=== PATIENT | female | born 1955 | race American Indian/Alaskan Native ===

== ENCOUNTER 2020-06-02 08:08 | Emergency (ER) | payer OTHER ==
[2020-06-02 10:32] LABS: Bacteria,Urine 2+ /HPF (Negative); Bilirubin,Urine NEG (Negative); Blood,Urine SM (Negative); Color,Urine Yellow (Yellow); Mucus,Urine FEW /HPF
--- NOTE | 2020-06-02 10:42 | Emergency Department Report ---
ED General Adult HPI - General Chief complaint: Abdominal Pain Stated complaint: ABDOMINAL PAIN/DIZZY/HEADACHE Time Seen by Provider: 06/02/20 10:22 Source: patient Mode of arrival: Ambulatory Limitations: No Limitations - History of Present Illness Initial comments: This is a 65-year-old -Irish female she is complaining of 1 week of feeling tired and having lower abdominal pain is scale of 7/10. She denies urinary frequency urgency but reports her urine is being hot. She also reports loss of appetite. Her last bowel movement was yesterday and it was normal. She denies any chest pain shortness of breath cough fever chills no nausea no vomiting. She is well-appearing and in no acute distress - Related Data Allergies Allergy/AdvReac Type Severity Reaction Status Date / Time No Known Allergies Allergy Unverified 06/02/20 08:15 ED Review of Systems ROS: Stated complaint: ABDOMINAL PAIN/DIZZY/HEADACHE Other details as noted in HPI Comment: All other systems reviewed and negative (Feeling fatigued) Constitutional: chills. denies: fever, malaise, weakness ENT: denies: ear pain, throat pain, hearing loss, epistaxis Respiratory: cough. denies: shortness of breath, SOB at rest, wheezing Cardiovascular: denies: chest pain, palpitations, dyspnea on exertion Gastrointestinal: abdominal pain (off and on ), other. denies: nausea, vomiting, diarrhea, constipation Genitourinary: denies: urgency, dysuria, frequency, hematuria (Decreased appetite) Skin: denies: rash Psychiatric: denies: anxiety ED Past Medical Hx - Past Medical History Additional medical history: hypothyroidism - Surgical History Past Surgical History?: No - Social History Smoking Status: Never Smoker ED Physical Exam - General Limitations: No Limitations General appearance: alert, in no apparent distress - Head Head exam: Present: atraumatic - Eye Eye exam: Present: normal appearance. Absent: conjunctival injection - ENT ENT exam: Present: normal exam, normal orophraynx, mucous membranes moist, TM's normal bilaterally - Neck Neck exam: Present: normal inspection. Absent: lymphadenopathy - Respiratory Respiratory exam: Present: normal lung sounds bilaterally. Absent: respiratory distress, chest wall tenderness - Cardiovascular Cardiovascular Exam: Present: regular rate, normal heart sounds - GI/Abdominal GI/Abdominal exam: Present: soft, normal bowel sounds. Absent: distended, tenderness, guarding, rebound, rigid - Rectal Rectal exam: Present: deferred - External exam: Present: normal external exam - Extremities Exam Extremities exam: Present: normal inspection - Back Exam Back exam: Present: normal inspection. Absent: CVA tenderness (R), CVA tenderness (L) - Neurological Exam Neurological exam: Present: alert, oriented X3 - Psychiatric Psychiatric exam: Present: flat affect - Skin Skin exam: Present: warm, normal color ED Course Vital Signs 06/02/20 06/02/20 06/02/20 08:14 11:57 14:52 Temperature 98.3 F 98.6 F Pulse Rate 83 75 Respiratory 18 14 18 Rate Blood Pressure 127/82 120/84 O2 Sat by Pulse 100 99 99 Oximetry - Reevaluation(s) Reevaluation #1: 06/02/20 13:59 Pt in no acute distress. she feels like she is having flu-like symptoms she is concerned that she may have Covid she denies any chest pain no shortness of breath states that she has a dry cough . Plan to order chest xray and monitor pulse ox 06/02/20 14:05 ED Medical Decision Making - Lab Data Result diagrams: 06/02/20 10:45 06/02/20 10:45 - Radiology Data Radiology results: report reviewed Chest xray No acute findings - Medical Decision Making Chest x-ray with no acute findings patient able to ambulate with no desaturation. She is well-appearing and in no distress plan to discharge patient home with outpatient follow-up. She can have a Covid testing done in the community and follow-up with her primary care doctor Before walking the patient's O2 was 99% on RA HR was 66, while walking her O2 went down to 97% on RA and her HR went up to 88. - Differential Diagnosis Viral syndrome influenza, Covid infection Critical care attestation.: If time is entered above; I have spent that time in minutes in the direct care of this critically ill patient, excluding procedure time. ED Disposition Clinical Impression: Viral syndrome, Flu-like symptoms Disposition: DC-01 TO HOME OR SELFCARE Is pt being admited?: No Does the pt Need Aspirin: No Condition: Stable Instructions: Abdominal Pain (ED), Viral Respiratory Infection, [id number], Hand Washing, [id number], Viral Respiratory Infection, Influenza, Adult, [id number] Additional Instructions: When you return home please rest. Increase oral hydration drinking at least 6 to 8 glasses a day. Follow-up with your primary care doctor in the next 3 to 5 days. Refer to the community referral for Covid testing. It is okay for you to take Tylenol as needed for body aches. Okay for you used to use Robitussin 1 teaspoon every 4-6 hours as needed for cough. Return to the emergency room if you develop any chest pain or shortness of breath Referrals: ZACARIAS SORIANO MD [Primary Care Provider] - 3-5 Days KRYSTYNA RATLIFF MD [Staff Physician] - 3-5 Days Forms: Work/School Release Form(ED) Time of Disposition: 15:20
[2020-06-02 11:13] LABS: Hematocrit 39.5 % (30.3-42.9); Hemoglobin 13.2 gm/dl (10.1-14.3); Mean Corpuscular HGB Conc 33 % (30-34); Mean Corpuscular Volume 80 fl (79-97); Platelet Count 190 K/mm3 (140-440); Red Blood Count 4.93 M/mm3 (3.65-5.03)
[2020-06-02 11:21] LABS: Alanine Aminotransferase 14 units/L (7-56); Albumin 3.9 g/dL (3.9-5); BUN/Creatinine Ratio 15; Blood Urea Nitrogen 12 mg/dL (7-17); Calcium 9.5 mg/dL (8.4-10.2); Hemolysis Index 6
[2020-06-02 11:33] LABS: Free T4 (Free Thyroxine) 1.62 ng/dL (0.76-1.46)
[2020-06-02 11:59] VITALS: BP 120/84
--- NOTE | 2020-06-02 14:54 | XRay Report ---
CHEST 2 VIEWS INDICATION / CLINICAL INFORMATION: cough. COMPARISON: None available. FINDINGS: SUPPORT DEVICES: None. HEART / MEDIASTINUM: No significant abnormality. LUNGS / PLEURA: No significant pulmonary or pleural abnormality. No pneumothorax. ADDITIONAL FINDINGS: No significant additional findings. IMPRESSION: 1. No acute findings. Signer Name: Gary Armstrong MD Signed: 06/02/2020 2:50 PM Workstation Name: [id number]
== END 2020-06-02 15:29 | disposition home or self-care (01) ==
LOC: ED 08:08
DX: B34.9 Viral infection, unspecified (principal); Z79.899 Other long term (current) drug therapy
CPT/HCPCS: 36415; 71046; 80053; 81001; 83690; 84439; 84443; 85027; 87086; 99283